=== PATIENT | female | born 2000 ===

== ENCOUNTER 2021-07-23 15:16 | Inpatient (IN) ==
[~2021-07-23 15:16] MED LIST: *HR* FentaNYL (PF) 100 MCG/2 ML VIAL ONE; *HR* Morphine Sulfate/PF 10 MG/10 ML AMPUL ONE; Famotidine 20 MG/2 ML VIAL IVP PRN; Metoclopramide 10 MG/2 ML VIAL IVP PRN; Naloxone 0.4 MG/ML INJ IVP PRN
[2021-07-23] MEDS ORDERED: Ondansetron 4 MG/2 ML VIAL ONE (15:19)
[2021-07-23] MEDS ORDERED: ceFAZolin 2,000 MG in Water for inj. (sterile) 20 ML IVP ONE (15:19)
[2021-07-23] MEDS ORDERED: Ringers Solution, Lactated 1,000 ML IVC SCH (15:30)
[2021-07-23 15:40] LABS: Basophils % 0.3 %; Eosinophils # 0.1 K/mcL (0.0-0.6); Eosinophils % 0.4 %; Hemoglobin 12.5 g/dL (11.5-15.4); Immature Granulocytes % 0.5 % (0-4); Lymphocytes # 1.5 K/mcL (0.6-4.6); Lymphocytes % 10.9 %; Mean Corpuscular HGB Conc 34.7 g/dL (31.6-35.5); Mean Corpuscular Hemoglobin 29.9 pg (28.0-33.3); Mean Corpuscular Volume 86.1 fL (83.0-100.0); Mean Platelet Volume 10.1 fL (9.4-12.4); Monocytes # 0.8 K/mcL (0.0-1.3); Monocytes % 5.8 %; Neutrophils # 10.9 K/mcL (1.6-8.9); Platelet Count 274 K/mcL (140-400); Red Blood Count 4.18 M/mcL (3.82-4.97); Red Cell Distribution Width 12.9 % (11.5-14.5); Segmented Neutrophils % 82.1 %; White Blood Count 13.3 K/mcL (4.3-11.1)
[2021-07-23] MEDS ORDERED: Acetaminophen IV 1,000 MG/100 ML BAG IVPB ONE (16:04)
[2021-07-23] MEDS ORDERED: *HR* OxyCODONE Immed Rel 5 MG TABLET PO PRN (16:12)
[2021-07-23] MEDS ORDERED: Naloxone 0.4 MG/ML INJ IVP PRN (16:12)
[2021-07-23] MEDS ORDERED: Promethazine 6.25 MG in Water for inj. (sterile) 20 ML IVPB PRN (16:12)
[2021-07-23 16:13] LABS: Influenza A PCR Negative (Negative); Influenza B PCR Negative (Negative); Resp. Syncytial Virus PCR Negative (Negative)
[2021-07-23 16:14] LABS: SARS-CoV-2 by PCR (In House) Negative (Negative)
[2021-07-23] MEDS ORDERED: *HR* Promethazine 25 MG/ML VIAL ONE (16:17)
[2021-07-23 16:21] LABS: Amphetamine Screen,Urine Negative ng/mL (Cutoff=1000); Barbiturate Screen,Urine Negative ng/mL (Cutoff=200); Benzodiazepines Screen,Urine Negative ng/mL (Cutoff=200); Cannabinoid Screen,Urine Positive ng/mL (Cutoff = 50); Cocaine Screen,Urine Negative ng/mL (Cutoff= 300); Opiate Screen,Urine Negative ng/mL (Cutoff=300); Phencyclidine Screen,Urine Negative ng/mL (Cutoff=25)
[2021-07-23 16:24] LABS: Rubella IgG Antibody Negative (POSITIVE); Varicella Zoster IgG Antibody Negative
[2021-07-23 16:47] LABS: Hepatitis B Surface Antigen Nonreactive (Nonreactive)
[2021-07-23 17:15] LABS: HIV-1&2 Antibody & p24 Ag Nonreactive (Nonreactive)
[2021-07-23] MEDS ORDERED: Metoclopramide 10 MG/2 ML VIAL IVP PRN (20:07)
[2021-07-23] MEDS ORDERED: Measles/Mumps/Rubella Vacc 0.5 ML VIAL SQ ONE (20:07)
[2021-07-23] MEDS ORDERED: Ondansetron 4 MG/2 ML VIAL IVP PRN (20:07)
[2021-07-23] MEDS ORDERED: Simethicone 80 MG TAB.CHEW PO PRN (20:07)
[2021-07-23] MEDS: Oxytocin 20 units/ LR 1000 mL 20 UNIT/1,000 ML BAG IVC SCH (20:46)
[2021-07-23] MEDS: Acetaminophen 325 MG TABLET PO SCH (20:47)
[2021-07-23] MEDS: Ibuprofen 600 MG TABLET PO SCH (20:47)
[2021-07-23] MEDS: *HR* OxyCODONE Immed Rel 5 MG TABLET PO PRN (22:03)
[2021-07-24] MEDS: *HR* OxyCODONE Immed Rel 5 MG TABLET PO PRN ×2 (04:06→08:53)
[2021-07-24] MEDS: Acetaminophen 325 MG TABLET PO SCH ×4 (04:06→19:56)
[2021-07-24] MEDS: Oxytocin 20 units/ LR 1000 mL 20 UNIT/1,000 ML BAG IVC SCH (04:06)
[2021-07-24] MEDS: Ibuprofen 600 MG TABLET PO SCH ×4 (04:07→19:57)
[2021-07-24] MEDS: Prenatal Vit/FA 1 EACH TABLET PO SCH (08:53)
[2021-07-24] MEDS ORDERED: Isovue-370 500 ML BOTTLE IVP ONE (14:51)
[2021-07-24] MEDS: Ringers Solution, Lactated 1,000 ML IVC SCH ×2 (15:00→17:00)
[2021-07-24 15:11] LABS: Basophils % 0.2 %; Eosinophils # 0.1 K/mcL (0.0-0.6); Eosinophils % 0.6 %; Hematocrit 31.1 % (35.3-44.9); Immature Granulocytes % 0.5 % (0-4); Lymphocytes # 1.3 K/mcL (0.6-4.6); Lymphocytes % 9.9 %; Mean Corpuscular HGB Conc 33.4 g/dL (31.6-35.5); Mean Corpuscular Hemoglobin 29.1 pg (28.0-33.3); Mean Corpuscular Volume 87.1 fL (83.0-100.0); Mean Platelet Volume 10.2 fL (9.4-12.4); Monocytes % 7.6 %; Neutrophils # 10.2 K/mcL (1.6-8.9); Platelet Count 192 K/mcL (140-400); Red Blood Count 3.57 M/mcL (3.82-4.97); Red Cell Distribution Width 13.1 % (11.5-14.5); Segmented Neutrophils % 81.2 %; White Blood Count 12.6 K/mcL (4.3-11.1)
[2021-07-24 15:12] LABS: Hemoglobin 10.4 g/dL (11.5-15.4)
[2021-07-24 15:19] LABS: INR 1.1; Prothrombin Time 11.8 Seconds (9.4-12.1)
[2021-07-24 15:33] LABS: Glucose 90 mg/dL (70-105); Troponin I < 0.03 ng/mL (< 0.04)
[2021-07-24 19:04] LABS: BUN/Creatinine Ratio 9 (6-26); Blood Urea Nitrogen 4 mg/dL (6-20); Calcium 8.6 mg/dL (8.6-10.3); Carbon Dioxide 24 mEq/L (23-29); Chloride 103 mEq/L (98-107); Osmolality,Calculated 276 (280-300); Potassium 3.8 mEq/L (3.5-5.1); Sodium 135 mEq/L (136-145); eGFR For African Americans > 60 (> 60); eGFR For Non-African Americans > 60 (> 60)
[2021-07-25] MEDS: Ringers Solution, Lactated 1,000 ML IVC SCH (01:25)
[2021-07-25] MEDS: Acetaminophen 325 MG TABLET PO SCH ×2 (02:34→08:44)
[2021-07-25] MEDS: Ibuprofen 600 MG TABLET PO SCH ×2 (02:34→08:44)
[2021-07-25 05:20] LABS: Basophils % 0.2 %; Eosinophils % 0.4 %; Hematocrit 25.5 % (35.3-44.9); Immature Granulocytes % 0.5 % (0-4); Lymphocytes # 1.1 K/mcL (0.6-4.6); Lymphocytes % 11.3 %; Mean Corpuscular HGB Conc 34.1 g/dL (31.6-35.5); Mean Corpuscular Hemoglobin 29.8 pg (28.0-33.3); Mean Corpuscular Volume 87.3 fL (83.0-100.0); Mean Platelet Volume 10.8 fL (9.4-12.4); Monocytes # 0.6 K/mcL (0.0-1.3); Monocytes % 6.3 %; Neutrophils # 7.6 K/mcL (1.6-8.9); Platelet Count 159 K/mcL (140-400); Red Blood Count 2.92 M/mcL (3.82-4.97); Red Cell Distribution Width 13.2 % (11.5-14.5); Segmented Neutrophils % 81.3 %; White Blood Count 9.4 K/mcL (4.3-11.1)
[2021-07-25 05:26] LABS: Hemoglobin 8.7 g/dL (11.5-15.4)
[2021-07-25 05:27] LABS: BUN/Creatinine Ratio 13 (6-26); Blood Urea Nitrogen 6 mg/dL (6-20); Calcium 8.1 mg/dL (8.6-10.3); Carbon Dioxide 25 mEq/L (23-29); Chloride 106 mEq/L (98-107); Glucose 79 mg/dL (70-105); Osmolality,Calculated 281 (280-300); Potassium 3.3 mEq/L (3.5-5.1); Sodium 137 mEq/L (136-145); eGFR For African Americans > 60 (> 60); eGFR For Non-African Americans > 60 (> 60)
[2021-07-25 06:33] VITALS: O2SAT 98
[2021-07-25 08:41] VITALS: BP 126/78; PULSE 98; TEMP 97.8
[2021-07-25] MEDS: Prenatal Vit/FA 1 EACH TABLET PO SCH (08:44)
[2021-07-25] MEDS: Aspirin 81 MG TAB.CHEW PO SCH ×2 (08:44)
[2021-07-25 13:08] LABS: Basophils % 0.3 %; Eosinophils % 0.3 %; Hematocrit 29.7 % (35.3-44.9); Hemoglobin 9.6 g/dL (11.5-15.4); Immature Granulocytes % 0.7 % (0-4); Lymphocytes % 9.3 %; Mean Corpuscular HGB Conc 32.3 g/dL (31.6-35.5); Mean Corpuscular Hemoglobin 28.5 pg (28.0-33.3); Mean Corpuscular Volume 88.1 fL (83.0-100.0); Mean Platelet Volume 9.9 fL (9.4-12.4); Monocytes # 0.6 K/mcL (0.0-1.3); Monocytes % 5.6 %; Neutrophils # 8.7 K/mcL (1.6-8.9); Platelet Count 206 K/mcL (140-400); Red Blood Count 3.37 M/mcL (3.82-4.97); Red Cell Distribution Width 13.2 % (11.5-14.5); Segmented Neutrophils % 83.8 %; White Blood Count 10.4 K/mcL (4.3-11.1)
== END 2021-07-25 15:00 | disposition home or self-care (01) | DRG 540 ==
LOC: 1NENULAB → 1NENUOBS 20:14
PROVIDERS: ADMIT Obstetrics & Gynecology; ATTEND Obstetrics & Gynecology